=== PATIENT | male | born 1950 | race Two or more races ===

== ENCOUNTER 2019-12-02 12:27 | Inpatient (IN) | payer MEDICARE, MEDICAID ==
[~2019-12-02] VITALS: Ht 177.8 cm; Wt 74.8 kg
--- NOTE | 2019-12-02 12:45 | NUR ---
Chest pain; [facility] to ER, from his PCP (Dr. Ward) aching-like; nonprovoke, nonradiating; nitro x 2; ASA 325 PO with Atenol. On room air, breathing evenly and unlabored. connected to the monitor and pulse ox. Kept comfortable, will continue to monitor accordingly.
[2019-12-02 12:48] LABS: BASOPHILS # (AUTO) 0.1 /CMM (0.0-0.2); EOSINOPHILS % (AUTO) 3.8 % (0.0-6.0); HEMATOCRIT 37 % (39-51); HEMOGLOBIN 11.9 g/dL (13.5-17.5); LYMPHOCYTES # (AUTO) 2.1 /CMM (0.8-4.8); LYMPHOCYTES % (AUTO) 29.1 % (20.0-44.0); MEAN CORPUSCULAR HGB CONC 32 g/dl (31.0-36.0); MEAN CORPUSCULAR VOLUME 81 fL (80-96); MONOCYTES # (AUTO) 0.6 /CMM (0.1-1.30); MONOCYTES % (AUTO) 8.8 % (2.0-12.0); NEUTROPHILS # (AUTO) 4.1 /CMM (1.8-8.9); NEUTROPHILS % (AUTO) 57.3 % (43.0-81.0); PLATELET COUNT (AUTO) 249 /CMM (150-450); RED BLOOD CELL COUNT(AUTO) 4.58 MIL/uL (4.5-6.0); WHITE BLOOD COUNT (AUTO) 7.2 K/uL (4.3-11.0)
--- NOTE | 2019-12-02 12:48 | NUR ---
wheeled patient for CT scan.
--- NOTE | 2019-12-02 12:49 | NUR ---
blood drawned and sent to lab
[2019-12-02 12:55] LABS: CARBON DIOXIDE 29 mmol/L (21-32); CHLORIDE 107 mmol/L (98-107); CREATININE 1.1 mg/dL (0.6-1.3); GLUCOSE 75 mg/dL (74-106); SODIUM SERUM 144 mmol/L (136-145); UREA NITROGEN, BLOOD 11 mg/dL (7-18)
--- NOTE | 2019-12-02 12:59 | NUR ---
patient came back from CT
[2019-12-02 13:02] LABS: ALANINE AMINOTRANSFERASE 24 U/L (12-78); ALBUMIN 3.7 g/dL (3.4-5.0); ALKALINE PHOSPHATASE 80 U/L (46-116); ASPARTATE AMINOTRANSFERASE 19 U/L (15-37); BILIRUBIN,DIRECT 0.1 mg/dL (0.0-0.2); BILIRUBIN,TOTAL 0.6 mg/dL (0.2-1.0); TOTAL PROTEIN, SERUM 6.6 g/dL (6.4-8.2)
--- NOTE | 2019-12-02 13:18 | NUR ---
PANEL ON-CALL PAGED
--- NOTE | 2019-12-02 13:27 | NUR ---
CALLED NURSING SUP FOR TELE BED
--- NOTE | 2019-12-02 14:28 | NUR ---
Sister Brittani [phone]
--- NOTE | 2019-12-02 14:47 | NUR ---
report given to Eamon ENCINAS for andreia.
--- NOTE | 2019-12-02 15:24 | NUR ---
wheeled patient via gurney accompanied by RN and emt in no distress. RN at bedside to assume care.
[2019-12-02 16:00] VITALS: BP 107/63
--- NOTE | 2019-12-02 16:30 | NUR ---
TELE ADMITTING NOTES PT ADMITTED TO UNIT AT 1515 VIA [facility] ACCOMPANIED BY Lily MATOS. PT ABLE TO WALKED FROM [facility] TO HIS BED WITH ETAEDY GAIT. PT IS A/O X3-4. ABLE TO MAKE NNEDS KNOWN AND NOTED WITH PERIOD OF FORGETFULNESS. RE-ORIENTED TO ROOM AND STAFF. V/S TAKEN, STABLE AND RECORDED. SKIN ASSESSMENT DONE. NO ISSUES NOTED ON UPPER PART OF BODY, PT REFUSED FURTHER SKIN ASSESSMENT FROM WAIST DOWN TO BLE, VERBALIZED THAT HE HAS NO SKIN ISSUES OR WOUNDS THERE. PT ON ROOM AIR, BREATHING EVEN AND UNLABORED. PT PLACED ON TELE MONITORING READING SHOWS 1ST DEGREE AV BLOCK WITH BBB'S , HR ON THE 70'S, NO C/O CARDIAC DISTRESS VOICED. DR NIELSEN MADE AWARE. IV ACCESS NOTED ON LAC G #18 INTACT AND PATENT. LUNGS CLEAR ON AUSCULTATION, ABDOMEN SOFT AND NON TENDER WITH + BOWEL SOUNDS ON FOUR QUADRANTS. PT ABLE TO MOVE ALL EXTREMITIES W/O PROBLEMS. SAFETY MEASURES INITIATED; BED PLACED IN LOW LOCKED POSITION WITH SIDE-RAILS UP. BED ALARM ON. CALL LIGHT WITHIN REACH.DR NIELSEN MADE AWARE OF PT'S ADMISSION TO UNITS. AWAITING FOR ADMITTING ORDERS. WILL CONTINUE TO MONITOR PT'S STATUS ACCORDINGLY.
[2019-12-02] MEDS ORDERED: CARVEDILOL (17:42)
[2019-12-02] MEDS ORDERED: ATORVASTATIN (17:42)
[2019-12-02] MEDS ORDERED: IV 1/2NS 1000 ML 1,000 ML IV PRN (18:00)
[2019-12-02] MEDS ORDERED: HYDROCODONE/APAP 5/325MG 1 EACH TABLET PO PRN (18:00)
[2019-12-02] MEDS ORDERED: MAGNESIUM HYDROXIDE 30 ML UDC PO PRN (18:00)
[2019-12-02] MEDS ORDERED: Z GUARD REMEDY 2 OZ OINT TP PRN (18:00)
[2019-12-02] MEDS ORDERED: ONDANSETRON HCL/PF 4 MG/2 ML VIAL IVP PRN (18:00)
[2019-12-02] MEDS ORDERED: ACETAMINOPHEN 325 MG TABLET PO PRN (18:00)
[2019-12-02] MEDS ORDERED: MAG HYDROX/AL HYDROX/SIMETH 30 ML UDC PO PRN (18:00)
--- NOTE | 2019-12-02 18:53 | NUR ---
[facility] CLOSING NOTES PT IN BED WATCHING TV AT THIS TIME. A/O X3-4. ABLE TO MAKE NEEDS KNOWN. CALM AND COOPERATIVE WITH NO C/O CHEST PAIN SINCE ADMISSION THIS AFTERNOON. ON ROOM AIR, BREATHING EVEN AND UNLABORED. ON TELE MONITORING WITH READING SHOWS BORDERLINE 1ST DEGREE AV BLOCK WITH BBB'S, HR ON THE 60- 70'S, NO C/O CARDIAC DISTRESS VOICED. IV ACCESS ON LAC G #18 INTACT AND PATENT, IVF OF 1/2 NS AT 75ML/HR INFUSING WELL, NO S/S OF OF INFILTRATIONS NOTED. ALL NEEDS AND CARE ATTENDED WELL. SAFETY MEASURES KEPT IN PLACE: BED PLACED IN LOW LOCKED POSITION WITH SIDE-RAILS UP. BED ALARM ON. CALL LIGHT WITHIN REACH. WILL ENDORSE TO SOIL CONSERVATIONIST NURSE FOR UDAY
--- NOTE | 2019-12-02 19:20 | NUR ---
PRELIMINARY ECHOCARDIOGRAM SHOWED EF 25-30%~. INFORMED ATTENDING RN (OSIEL) OF INITIAL RESULT.
--- NOTE | 2019-12-02 19:30 | NUR ---
EYELETTER OPENING NOTE RECEIVED PATIENT IN BED. A/O X3-4, FORGETFUL. TOLERATING ROOM AIR. RESPIRATIONS ARE EVEN AND UNLABORED. NO S/S SOB NOTED. EXTERNAL TELE MONITOR READS BORDERLINE 1ST DEGREE AVB WITH BBB, HR48. IN NO APPARENT DISTRESS. IV ACCESS IN RAC#18 RUNNING 1/2 NS@75ML/HR. BED IS LOW AND LOCKED, HOB ELEVATED IN SEMI FOWLERS, SIDE RIALS UP X2. CALL LIGHT WITHIN REACH. WILL CONTINUE TO MONITOR.
[2019-12-02 20:00] VITALS: BP 105/57
[2019-12-02] MEDS ORDERED: NITR0.4T48 SL (21:00)
[2019-12-02] MEDS ORDERED: ASPI-605 PO (21:00)
[2019-12-02] MEDS ORDERED: CARV25TA2 PO (21:00)
[2019-12-02] MEDS ORDERED: ATOR40TA PO (21:00)
--- NOTE | 2019-12-02 21:42 | NUR ---
ANIMAL ATTENDANTS AND TRAINERS NOTE SPOKE WITH PATIENTS MICHEL NAPOLES [phone] FOR MED RECON. MED RECON ENTERED. MADE AWARE TO REVIEW. WILL CONTINUE TO MONITOR.
[2019-12-03] VITALS: BP 92/46
[2019-12-03 04:07] VITALS: BP 101/60
--- NOTE | 2019-12-03 05:19 | NUR ---
TOWNS[place]IP SUPERVISOR NOTE MADE MD AWARE TO REVIEW MED RECON ONCE AGAIN.
--- NOTE | 2019-12-03 06:57 | NUR ---
TACTICAL RESPONSE GROUP OFFICER CLOSING NOTE PATIENT IN BED. A/O X3-4, FORGETFUL. REMAINS TOLERATING ROOM AIR. RESPIRATIONS ARE EVEN AND UNLABORED. NO SOB NOTED. NO C/O PAIN THROUGHOUT SHIFT. EXTERNAL TELE MONITOR READS BORDERLINE 1ST DEGREE AVB WITH BBB, HR48. NO DISTRESS NOTED. IV ACCESS IN L HAND#20 PATENT AND SALINE LOCKED. BED IS LOW AND LOCKED, HOB ELEVATED IN SEMI FOWLERS, SIDE RIALS UP X2. CALL LIGHT WITHIN REACH. WILL ENDORSE TO NEXT SHIFT.
[2019-12-03 08:00] VITALS: BP 103/59
--- NOTE | 2019-12-03 08:00 | NUR ---
TANK FARM GAUGER AM NOTE RECEIVED PATIENT IN BED. A/O X3-4, FORGETFUL. TOLERATING ROOM AIR. RESPIRATIONS ARE EVEN AND UNLABORED. NO S/S SOB NOTED. EXTERNAL TELE MONITOR READS BORDERLINE 1ST DEGREE AVB WITH BBB, HR48. IN NO APPARENT DISTRESS. IV ACCESS IN RAC#18 RUNNING 1/2 NS@75ML/HR.WITH BRP.PT TENDS TO FORGET THAT HE HAS IV FLUID GOING ON. BED IS LOW AND LOCKED, HOB ELEVATED IN SEMI FOWLERS, SIDE RIALS UP X2. CALL LIGHT WITHIN REACH. WILL CONTINUE TO MONITOR.
[2019-12-03 08:42] LABS: BASOPHILS % (AUTO) 0.7 % (0.0-2.0); EOSINOPHILS % (AUTO) 4.3 % (0.0-6.0); HEMATOCRIT 37 % (39-51); HEMOGLOBIN 11.6 g/dL (13.5-17.5); LYMPHOCYTES # (AUTO) 1.8 /CMM (0.8-4.8); LYMPHOCYTES % (AUTO) 27.1 % (20.0-44.0); MEAN CORPUSCULAR HGB CONC 32 g/dl (31.0-36.0); MEAN CORPUSCULAR VOLUME 82 fL (80-96); MONOCYTES # (AUTO) 0.5 /CMM (0.1-1.30); NEUTROPHILS # (AUTO) 3.9 /CMM (1.8-8.9); NEUTROPHILS % (AUTO) 59.9 % (43.0-81.0); PLATELET COUNT (AUTO) 232 /CMM (150-450); WHITE BLOOD COUNT (AUTO) 6.5 K/uL (4.3-11.0)
[2019-12-03] MEDS ORDERED: CARVEDILOL 12.5 MG TABLET PO SCH ×2 (09:00)
[2019-12-03 09:14] LABS: MAGNESIUM 1.9 mg/dL (1.8-2.4); PHOSPHORUS 2.9 mg/dL (2.5-4.9); POTASSIUM 3.6 mmol/L (3.5-5.1)
[2019-12-03 10:21] LABS: THYROID STIMULATING HORMONE 0.873 uIU/mL (0.358-3.74)
[2019-12-03] MEDS: ASPIRIN EC 81 MG TABLET.DR PO SCH (10:34)
[2019-12-03 12:00] VITALS: BP 112/65
--- NOTE | 2019-12-03 12:30 | NUR ---
PT'S CREDIT RATING CHECKER,DR HOWIE LEDESMA ORDERED COREG 3.125 MG PO BID LAST -NOTIFIED DR NIELSEN AND MADE ORDERS AND CARRIED OUT.
[2019-12-03 16:00] VITALS: BP 101/62
--- NOTE | 2019-12-03 16:05 | NUR ---
CALLED DR NICOLETTE SARABIA (PT'S PMD) WHO STAted that all the papers done by Dr Sarabia was handed to the pt during transfer.
[2019-12-03] MEDS ORDERED: ATORVASTATIN 40 MG TABLET PO SCH (18:00)
--- NOTE | 2019-12-03 18:00 | NUR ---
PT IS SO CONFUSED PULLING OUT HIS IV H/L FOR HIM TO GO TO THE TOILET.EXPLAINED GENTLY TO USE THE CALL LIGHT.THIS IS THE SECOND TIME PT PULLED OUT HIS IV H/L.INSERTED A NEW ONE IN LFA.
[2019-12-03 20:08] VITALS: BP 105/57
--- NOTE | 2019-12-03 20:46 | NUR ---
MS/RN AT INITIAL ROUNDING AT 1930, PATIENT WAS IN BED AWAKE, ALERT, ORIENTED, COMFORTABLE, NO C/O PAIN, NO DISTRESS NOTED, CALL LIGHT IN REACH. WILL MONITOR.
[2019-12-03] MEDS: CARVEDILOL 12.5 MG TABLET PO SCH (21:00)
[2019-12-04] VITALS: BP 111/64
[2019-12-04 04:00] VITALS: BP 123/71
--- NOTE | 2019-12-04 06:40 | NUR ---
MS/RN PATIENT IS AWAKE, COMFORTABLE, NO DISTRESS NOTE, ALL NEEDS ATTENDED AT THIS TIME, WILL CONTINUE TO MONITOR.
--- NOTE | 2019-12-04 07:30 | NUR ---
MS/RN Patient received Patient received from overnight cashier. A/O X2-3, vital signs stable, denies any pain or discomfort at this time. Tele monitor reading NSR. Patient sat in hallway, ambulating without any restrictions. Will continue to monitor and ensure safety.
[2019-12-04 08:00] VITALS: BP 120/70
--- NOTE | 2019-12-04 08:31 | NUR ---
MS/RN Medications Morning medications administered as ordered.
[2019-12-04 08:45] VITALS: BP 120/70
[2019-12-04] MEDS: ASPIRIN EC 81 MG TABLET.DR PO SCH (08:45)
[2019-12-04] MEDS: CARVEDILOL 12.5 MG TABLET PO SCH (08:45)
--- NOTE | 2019-12-04 11:15 | NUR ---
MS/RN S/B Dr Braxton Seen by Dr London - psych eval ordered, face sheet faxed to [facility], spoke with Farzad. Psychiatrist division leader today is Dr Carson.
--- NOTE | 2019-12-04 12:30 | NUR ---
MS/RN S/B Dr Carson Seen by psychatrist - patient refusing to accept any medications at this time.
--- NOTE | 2019-12-04 13:00 | NUR ---
MS/RN Medical records ([place]) Patient refusing to signs consent form to enable previous medical records to be obtained from [facility]. Dr Braxton on unit and made aware, stated therefore that tele should be discontinued and patient could be discharged to home. Dr London made aware, discharge order entered into the computer.
--- NOTE | 2019-12-04 13:41 | NUR ---
MS/RN Exit care Exit care prepared, medical record copied and provided to patient.
--- NOTE | 2019-12-04 14:10 | NUR ---
MS/poultry debeaker Patient discharged to home in stable condition. Heplock and name bands removed, all personal belongings accounted for on belongings list. Patient refused to sign exit care and personal belongings list. Educated patient as to the importance of making follow up appointment with his primary care doctor, stated understanding. No changes made to medications, no new prescriptions needed. Patient's cousin Brittani and Harinder both upset that patient being discharged before being seen by neurologist. Explained that Dr Braxton had given report to Dr London to discharge patient as patient refused to give consent for medical records to be released from [facility]. Escorted to main lobby by LEIF.
== END 2019-12-04 14:10 | disposition home or self-care (01) | DRG 303 ==
LOC: ER 12:28 → TELE 14:46
PROVIDERS: ADMIT Internal Medicine; ATTEND Internal Medicine
DX: I25.10 Atherosclerotic heart disease of native coronary artery without angina pectoris (principal); G93.40 Encephalopathy, unspecified; D64.9 Anemia, unspecified; I50.9 Heart failure, unspecified; F09 Unspecified mental disorder due to known physiological condition; I44.7 Left bundle-branch block, unspecified; I70.0 Atherosclerosis of aorta; Z87.820 Personal history of traumatic brain injury; I42.9 Cardiomyopathy, unspecified; F60.9 Personality disorder, unspecified; F39 Unspecified mood [affective] disorder
CPT/HCPCS: 36415; 70450-TC; 71045-TC; 80048-TC; 80061-TC; 80076-TC; 80305; 82728-TC; 82962-TC; 83540-TC; 83735-TC; 84100-TC; 84439-TC; 84443-TC; 84484-TC; 85025-TC; 87081-TC; 93307-TC; G0378; J3490